=== PATIENT | female | born 1980 | race Caucasian/White ===

== ENCOUNTER 2017-02-09 13:45 | Emergency (ER) | payer MEDICARE | END 2017-02-09 22:17 | disposition home or self-care (01) | LOC: D.ER 13:45 | DX: S16.1XXA Strain of muscle, fascia and tendon at neck level, initial encounter (principal); V43.52XA Car driver injured in collision with other type car in traffic accident, initial encounter; Y93.89 Activity, other specified; Y92.410 Unspecified street and highway as the place of occurrence of the external cause ==

== ENCOUNTER 2018-06-10 22:31 | Emergency (ER) | payer MEDICARE ==
[~2018-06-10] VITALS: Ht 157.5 cm; Wt 67.3 kg
[2018-06-10 22:42] VITALS: Ht 157.5 cm; Wt 67.3 kg
[2018-06-10] MEDS ORDERED: ZOLOFT100 MG PO (22:43)
[2018-06-10] MEDS ORDERED: XANAX0.5 MG PO (22:44)
[2018-06-10 22:55] LABS: BASOPHILS 0.4 % (0-2); EOSINOPHILS 2.4 % (0-7); HEMATOCRIT 37.9 % (36.0-48.0); HEMOGLOBIN 12.5 g/dL (12-16); IMMATURE GRANULOCYTES 0.1 % (0-5); LYMPHOCYTES 39.8 % (15-50); MCH 28.5 pg (26.0-34.0); MCV 86.5 fL (80.0-100.0); MEAN PLATELET VOLUME 9.6 fL (7.4-10.4); MONOCYTES 6.7 % (2-11); NEUTROPHILS 50.6 % (40-80); PLATELET COUNT 238 10x3/uL (130-400); RBC 4.38 10x6/uL (4.00-5.40); RDW 15.9 % (11.5-14.5); WBC 8.3 10x3/uL (4.8-10.8)
[2018-06-10 23:07] LABS: ALBUMIN 3.9 g/dL (3.4-5.0); ALKALINE PHOSPHATASE 52 U/L (46-116); ALT (SGPT) 18 U/L (10-68); BILIRUBIN - TOTAL 0.14 mg/dL (0.2-1.3); CALC OSMOLALITY 274 mosm/kg (275-300); CALCIUM 8.9 mg/dL (8.5-10.1); CARBON DIOXIDE 28.2 mmol/L (21.0-32.0); CHLORIDE - SERUM 103 mmol/L (98-107); CREATININE - SERUM 0.7 mg/dL (0.6-1.3); GLUCOSE 102 mg/dL (74-106); PROTEIN - SERUM 7.1 g/dL (6.4-8.2); SODIUM 138 mmol/L (136-145); UREA NITROGEN 10 mg/dL (7-18); eGFR NON AFRICAN AMERICAN > 90 mL/min (90-120)
[2018-06-10 23:20] LABS: CKMB 0.9 U/L (0.0-3.6); CREATINE KINASE 78 UL (21-215); PRO BNP 52 pg/mL (0-125); THYROID STIMULATING HORMONE 2.53 uIU/mL (0.36-3.74); TROPONIN-I < 0.017 ng/mL (0.000-0.060)
[2018-06-11 00:45] LABS: APPEARANCE CLEAR (CLEAR); BILIRUBIN NEGATIVE (NEGATIVE); COLOR YELLOW (YELLOW); GLUCOSE NEGATIVE (NEGATIVE); KETONE NEGATIVE (NEGATIVE); NITRITE NEGATIVE (NEGATIVE); PROTEIN NEGATIVE (NEGATIVE); UROBILINOGEN NORMAL (NORMAL)
[2018-06-11] MEDS ORDERED: ROBAXIN500 MG PO (01:06)
[2018-06-11 01:23] VITALS: BP 123/74
== END 2018-06-11 01:24 | disposition home or self-care (01) ==
LOC: D.ER 22:31
PROVIDERS: Emergency Medicine
DX: F41.1 Generalized anxiety disorder (principal); F17.200 Nicotine dependence, unspecified, uncomplicated

== ENCOUNTER → 2020-03-04 13:37 | Outpatient (CLI) | payer MEDICARE ==
[2018-06-10 22:42] VITALS: BMI 27.1
[~2020-03-04 13:37] MED LIST: ROBAXIN500 MG PO; XANAX0.5 MG PO; ZOLOFT100 MG PO
== END | disposition home or self-care (01) ==
LOC: D.CT 13:30
PROVIDERS: ATTEND Family Medicine
DX: R51 Headache (principal)

== ENCOUNTER 2020-07-22 17:00 | Outpatient (CLI) | payer MEDICARE ==
[2018-06-10 22:42] VITALS: BMI 27.1
== END 2020-07-22 23:59 | disposition home or self-care (01) ==
LOC: D.MAMMO 17:00
PROVIDERS: ATTEND Family Medicine
DX: Z12.31 Encounter for screening mammogram for malignant neoplasm of breast (principal)